=== PATIENT | male | born 1990 | race Caucasian/White ===

== ENCOUNTER 2017-01-31 11:51 | Emergency (ER) | payer OTHER ==
--- NOTE | 2017-01-31 12:02 | ED GENERAL ADULT ---
History of Present Illness General Chief Complaint: General Adult Stated Complaint: MED REFILL Source: patient Exam Limitations: no limitations Vital Signs & Intake/Output Vital Signs & Intake/Output Vital Signs Date Time Temp Pulse Resp B/P B/P Pulse O2 O2 Flow FiO2 Mean Ox Delivery Rate 01/31 1154 98.3 106 16 148/86 98 Room Air Allergies Coded Allergies: aluminum (Intermediate, HIVES 01/31/17) nickel (Intermediate, HIVES 01/31/17) Reconcile Medications Risperidone (Risperdal) 1 MG TABLET 1 TAB PO BID MOOD DISORDER Trazodone HCl 50 MG TABLET 1 TAB PO QPM SLEEP Triage Note: PT HERE FOR REFILL OF HIS RISPERDAL AND TRAZODONE. STATES WAS UNABLE TO GET IN TOUCH WITH HIS DOCTOR. TOOK THIS MORNINGS DOSE. Triage Nurses Notes Reviewed? yes Onset: Abrupt Duration: constant Timing: recent history Severity: mild Severity Numbers: 1 HPI: Patient is a 26-year-old male who presents emergency room stating that 1 month ago he was admitted to a hospital in [facility] for concerns of new onset of bipolar disorder. Patient was discharged was given prescriptions of risperidone 1 mg twice a day and trazodone 50 mg at bedtime for symptoms. Patient states that his medications ran out this morning and was requesting medication refill primary care doctor and a psychiatric provider referral. Patient currently is without complaints. Denies any suicide or homicidal ideation or exacerbation of his previous symptoms from previous admission. Patient currently is a resident in [place]. (LEO LEOS) Past History Travel History Traveled to [place] past 21 day No Medical History Any Pertinent Medical History? see below for history Psychiatric: bipolar disease Surgical History Surgical History: non-contributory Psychosocial History What is your primary language Hebrew Tobacco Use: Never used Family History Hx Contributory? No (LEO LEOS) Review of Systems Review of Systems Constitutional: Reports: no symptoms. EENTM: Reports: no symptoms. Respiratory: Reports: no symptoms. Cardiovascular: Reports: no symptoms. GI: Reports: no symptoms. Genitourinary: Reports: no symptoms. Musculoskeletal: Reports: no symptoms. Skin: Reports: no symptoms. Neurological/Psychological: Reports: no symptoms. Hematologic/Endocrine: Reports: no symptoms. Immunologic/Allergic: Reports: no symptoms. All Other Systems: Reviewed and Negative (LEO LEOS) Physical Exam Physical Exam General Appearance: no apparent distress, alert, comfortable Comments: Well-developed well-nourished person in no acute distress HEENT: Normal EENT exam Neck: Supple, no lymphadenopathy, normal range of motion without pain or tenderness Back: Nontender, no CVA tenderness. Full range of motion Cardiovascular: Regular rate and rhythms no murmurs rubs or gallops, normal JVP Respiratory: Chest nontender. No respiratory distress.breath sounds clear to auscultation bilaterally Abdomen: Soft, nontender nondistended, no appreciable organomegaly. Normal bowel sounds. No ascites Extremity: No edema, no calf tenderness to palpation, normal and equal pulses. Neuro: Alert oriented x3, motor sensory normal, cranial nerves II through XII grossly intact. Skin: No appreciable rash on exposed skin, skin is warm and dry. Psych: Mood and affect is normal, memory and judgment is normal. Core Measures ACS in differential dx? No CVA/TIA Diagnosis: No Severe Sepsis Present: No Septic Shock Present: No (LEO LEOS) Progress Differential Diagnoses I considered the following diagnoses in my evaluation of the patient: [Bipolar disorder, mood disorder, depression, anxiety,] Plan of Care: It was confirmed through patient's previous paperwork that medications as discussed in history of present illness were accurate patient was given referral for [facility] practice and psychiatry establishment referral. Initial ED EKG: none (LEO LEOS) Departure Departure Disposition: HOME OR SELF CARE Condition: Stable Clinical Impression Primary Impression: Medication refill Secondary Impressions: Bipolar disorder Referrals: PATIENT HAS NO PRIMARY CARE DR (PCP/Family) Additional Instructions: As discussed on Wednesday please follow up with a list of primary psychiatric referral resources to establish a provider for your symptoms and medication refill, follow-up with [facility] practice to make an appointment this week for further evaluation treatment and to establish a primary care doctor. Begin the prescription of risperidone and trazodone for your symptoms. If symptoms worsen return to the emergency room. Departure Forms: Customer Survey General Discharge Information Prescriptions: Current Visit Scripts Risperidone (Risperdal) 1 TAB PO BID #60 TAB Trazodone HCl 1 TAB PO QPM #30 TAB (LEO LEOS) PA/INSPECTION AND TESTING SUPERVISOR Co-Sign Statement Statement: ED Attending supervision documentation- [] I saw and evaluated the patient. I have also reviewed all the pertinent lab results and diagnostic results. I agree with the findings and the plan of care as documented in the PA's/INSPECTION AND TESTING SUPERVISOR's documentation. [X] I have reviewed the ED Record and agree with the PA's/INSPECTION AND TESTING SUPERVISOR's documentation. [] Additions or exceptions (if any) to the PAs/INSPECTION AND TESTING SUPERVISOR's note and plan are summarized below: [] (EDWIN PARK,VICKI Benítez) Critical Care Note Critical Care Note Critical Care Time: non-applicable (LEO LEOS)
[2017-01-31] MEDS ORDERED: RISPERDAL1 M1 PO (12:09)
[2017-01-31] MEDS ORDERED: TRAZODONE HCL50 M1 PO (12:09)
== END 2017-01-31 12:13 ==
LOC: ERH 11:51
DX: Z76.0 Encounter for issue of repeat prescription (principal); F31.9 Bipolar disorder, unspecified
CPT/HCPCS: 99281

== ENCOUNTER 2017-03-09 12:43 | Emergency (ER) | payer SELFPAY ==
[~2017-03-09] VITALS: Ht 170.2 cm; Wt 90.7 kg
[~2017-03-09 12:43] MED LIST: RISPERDAL1 M1 PO; TRAZODONE HCL50 M1 PO
[2017-03-09] MEDS ORDERED: TRAZODONE HCL50 M1 PO (13:23)
[2017-03-09] MEDS ORDERED: RISPERIDONE1 M1 PO (13:23)
--- NOTE | 2017-03-09 13:24 | ED GENERAL ADULT ---
History of Present Illness General Chief Complaint: General Adult Stated Complaint: MEDICATION REFILL Source: patient Exam Limitations: no limitations Vital Signs & Intake/Output Vital Signs & Intake/Output Vital Signs Date Time Temp Pulse Resp B/P B/P Pulse O2 O2 Flow FiO2 Mean Ox Delivery Rate 03/09 1346 98.0 80 18 135/74 100 Room Air 03/09 1246 97.8 79 20 153/98 98 Room Air Allergies Coded Allergies: aluminum (Intermediate, HIVES 01/31/17) nickel (Intermediate, HIVES 01/31/17) Reconcile Medications Risperidone 1 MG TABLET 1 TAB PO BID mood disorder Risperidone (Risperdal) 1 MG TABLET 1 TAB PO BID MOOD DISORDER Trazodone HCl 50 MG TABLET 1 TAB PO QPM sleep Trazodone HCl 50 MG TABLET 1 TAB PO QPM SLEEP Triage Note: PT PRESENTS TO ER FOR MED REFILL. PT STATES JUST RECENTLY MOVED TO [place] AND HE RAN OUT OF HIS RISPERDONE AND TRAZADONE. PT STATES HE LAST TOOK MEDS LAST NIGHT BUT MISSED DOES THIS AM PT DENIES SI AND HI THOUGHTS. PT DOES ADMIT TO FEELING ANXIOUS LATELY DUE TO GAP IN INSURANCE AND MOVE. Triage Nurses Notes Reviewed? yes Onset: Gradual Duration: day(s): Timing: recent history Modifying Factors: Improves With: medication. HPI: on male presents emergency department requesting medication refill. He says that he recently moved to [place] from [place] and does not have insurance. He was seen here a month ago and was given referral for primary care doctor which he plans to follow up with in 1-2 weeks once his insurance kicks in. He is requesting risperidone 1 mg twice a day and trazodone 50 mg daily at bedtime. He states that without his medications as anxiety worsens, he has been off medications for 3 days and feels increased anxiety. He denies chest pain, dyspnea, abdominal pain, malaise. (JOHNNY BARTHOLOMEW PA-C) Past History Travel History Traveled to [place] past 21 day No Medical History Any Pertinent Medical History? see below for history Neurological: NONE EENT: NONE Cardiovascular: NONE Respiratory: NONE Gastrointestinal: NONE Hepatic: NONE Renal: NONE Musculoskeletal: NONE Psychiatric: bipolar disease Surgical History Surgical History: non-contributory Psychosocial History What is your primary language Kiswahili Tobacco Use: Never used Family History Hx Contributory? No (JOHNNY BARTHOLOMEW PA-C) Review of Systems Review of Systems Constitutional: Reports: no symptoms. EENTM: Reports: no symptoms. Respiratory: Reports: no symptoms. Cardiovascular: Reports: no symptoms. GI: Reports: no symptoms. Genitourinary: Reports: no symptoms. Musculoskeletal: Reports: no symptoms. Skin: Reports: no symptoms. Neurological/Psychological: Reports: see HPI. Hematologic/Endocrine: Reports: no symptoms. Immunologic/Allergic: Reports: no symptoms. All Other Systems: Reviewed and Negative (JOHNNY BARTHOLOMEW PA-C) Physical Exam Physical Exam General Appearance: well developed/nourished, no apparent distress, alert, awake Head: atraumatic, normal appearance Eyes: Bilateral: normal appearance. Ears, Nose, Throat: hearing grossly normal Neck: normal inspection, full range of motion Respiratory: no respiratory distress Back: normal inspection, normal range of motion Extremities: normal inspection, normal range of motion Neurologic/Psych: awake, alert, oriented x 3, normal mood/affect Skin: intact, normal color, warm/dry Core Measures ACS in differential dx? No CVA/TIA Diagnosis: No Severe Sepsis Present: No Septic Shock Present: No (JOHNNY BARTHOLOMEW PA-C) Progress Differential Diagnoses I considered the following diagnoses in my evaluation of the patient: [anxiety, drug dependence, drug withdrawal, drug overdose] Plan of Care: Patient is in his usual state of health, he is not complaining of any current symptoms. He is requesting medication refill for his psychiatry medications. The patient does not have insurance at however he states that next week he will likely have an transabdominal follow-up with a primary care physician. The patient was given a short course of his current psychiatry medications for until he can establish care with a PCP. The patient is in agreement with the plan of care. Initial ED EKG: none (JOHNNY BARTHOLOMEW PA-C) Departure Departure Disposition: HOME OR SELF CARE Condition: Stable Clinical Impression Primary Impression: Anxiety Secondary Impressions: Medicine refill Referrals: PATIENT HAS NO PRIMARY CARE DR (PCP/Family) Additional Instructions: Take risperidone and trazodone as prescribed. Follow-up with the primary care physician that was referred to you on your last visit here as soon as you can to establish care. Return here with any worsening symptoms or concerns. Departure Forms: Customer Survey General Discharge Information Prescriptions: Current Visit Scripts Risperidone 1 TAB PO BID #30 TAB Trazodone HCl 1 TAB PO QPM #15 TAB (JOHNNY BARTHOLOMEW PA-C) PA/MEDICAL REVIEWER Co-Sign Statement Statement: ED Attending supervision documentation- I saw and evaluated the patient. I have also reviewed all the pertinent lab results and diagnostic results. I agree with the findings and the plan of care as documented in the PA's/MEDICAL REVIEWER's documentation. x I have reviewed the ED Record and agree with the PA's/MEDICAL REVIEWER's documentation. [] Additions or exceptions (if any) to the PAs/MEDICAL REVIEWER's note and plan are summarized below: [] (LINDA PARK,FRANCISCO) Critical Care Note Critical Care Note Critical Care Time: non-applicable (PUMA VIDES,JOHNNY)
[2017-03-09 13:46] VITALS: BP 135/74
== END 2017-03-09 13:47 ==
LOC: ERH 12:43
DX: F41.9 Anxiety disorder, unspecified (principal); Z76.0 Encounter for issue of repeat prescription